=== PATIENT | male | born 1990 | race Caucasian/White ===

== ENCOUNTER 2023-01-23 17:39 | Emergency (ER) | payer OTHER, SELFPAY ==
[2023-01-23] VITALS (12 sets, daily range): BP systolic 131–162; BP diastolic 68–107; PULSE 56–94; RESP 15–22; TEMP 36.6–36.9; O2SAT 97–100
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
--- NOTE | 2023-01-23 17:54 | ECG_ITS ---
Measurements Intervals [place] Rate: 58 P: 53 MI: 126 QRS: 59 QRSD: 97 T: 44 QT: 408 QTc: 404 Interpretive Statements SINUS BRADYCARDIA BASELINE ARTIFACT- I, II, III, AVR, AVL, AVF, V4-V6 BORDERLINE ECG NO PREVIOUS ECG AVAILABLE FOR COMPARISON Electronically Signed On 01-23-2023 20:53:56 VEHICLE CHECK IN CLERK by Otilio Correa D.O.
[2023-01-23] MEDS: ONDANSETRON INJ 4 MG/2 ML VIAL IV PUSH (18:17)
[2023-01-23] MEDS: HYDROmorphone HCL INJ (*CRX) 1 MG/ML SYR IV PUSH (18:17)
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
[2023-01-23] MEDS: TETANUS,DIPHTHERIA,AC PERTUSSIS ADULT (0.5 ML) BOOSTRIX IM (18:34)
[2023-01-23 18:59] LABS: Basophils Absolute Auto 0.1 K/mm3 (0.0-0.1); Eosinophils Absolute Auto 0.2 K/mm3 (0-0.3); Eosinophils Percent Auto 3.5 % (0-4.4); Hematocrit 41.6 % (42.0-52.0); Immature Granulocyte Absolute 0.04 K/mm3 (0.00-0.031); Immature Granulocyte Percent A 0.6 % (0-0.5); Lymphocytes Absolute Auto 1.84 K/mm3 (0.9-3.2); Lymphocytes Percent Auto 29.5 % (18.3-44.2); Mean Corpuscular HGB Conc 33.7 g/dl (32-36); Mean Corpuscular Hemoglobin 33.3 pg (26-34); Mean Corpuscular Volume 98.8 fl (80-100); Mean Platelet Volume 8.9 fl (7.4-10.4); Monocytes Absolute Auto 0.9 K/mm3 (0.1-0.6); Monocytes Percent Auto 13.6 % (2.6-8.5); Neutrophils Absolute Auto 3.2 K/mm3 (1.3-6.7); Neutrophils Percent Auto 51.8 % (45.5-73.1); Platelet Count Result 235 k/mm3 (150-375); Red Blood Count 4.21 M/mm3 (4.6-6.20); Red Cell Distribution Width 13.2 % (11.5-14.5); White Blood Count 6.2 K/mm3 (4.5-10.0)
[2023-01-23 19:09] LABS: Alanine Aminotransferase 32 U/L (6-50); Albumin Level 4.5 g/dL (3.5-5.1); Alkaline Phosphatase 49 U/L (38-126); Anion Gap 6 mmol/L (8-16); Aspartate Amino Transferase 48 U/L (17-59); Bilirubin,Total 0.6 mg/dL (0.2-1.3); Blood Urea Nitrogen 11 mg/dL (9-20); Carbon Dioxide 28 mmol/L (22-30); Chloride 102 mmol/L (98-107); Estimated CRCL calculation 163 ml/min; Estimated Glomerular Filt Rate > 60; Glucose 120 mg/dL (65-110); Potassium 4.2 mmol/L (3.4-5.0); Sodium 136 mmol/L (137-145)
[2023-01-23 19:16] LABS: Prothrombin Time 12.7 Seconds (11.1-14.7)
[2023-01-23 19:17] LABS: Partial Thromboplastin Time 24.8 SECONDS (22.3-36.8)
[2023-01-23] MEDS: LACTATED RINGERS 1,000 ML 999 ML IV CONT (21:36)
[2023-01-23] MEDS: HYDROmorphone HCL INJ (*CRX) 1 MG/ML SYR 0.5 MG IV PUSH ×2 (21:53→23:43)
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
--- NOTE | 2023-01-24 02:51 | PC.NURSE ---
RIGO received from Dr. Rodriguez for Toradol, Dilaudid, and Tylenol
[2023-01-24 03:04] VITALS: BP 157/89; PULSE 72; RESP 16; O2SAT 95
[2023-01-24] MEDS: KETOROLAC 30 MG/ML VIAL (*BKC) 15 MG IV PUSH (03:05)
[2023-01-24] MEDS: HYDROmorphone HCL INJ (*CRX) 1 MG/ML SYR 0.5 MG IV PUSH (03:06)
== END 2023-01-24 03:33 | disposition short-term general hospital (02) ==
PROVIDERS: Emergency Provider General Practice
DX: S52.502A Unspecified fracture of the lower end of left radius, initial encounter for closed fracture (principal); S27.899A Unspecified injury of other specified intrathoracic organs, initial encounter; S22.20XA Unspecified fracture of sternum, initial encounter for closed fracture; R00.1 Bradycardia, unspecified; F17.210 Nicotine dependence, cigarettes, uncomplicated; V13.4XXA Pedal cycle driver injured in collision with car, pick-up truck or van in traffic accident, initial encounter; Z23 Encounter for immunization
CPT/HCPCS: 25605; 36415; 71045; 71260; 72125; 73100; 73110; 74177; 80053; 85025; 85610; 85730; 90471; 90715; 93005; 96361; 96374; 96375; 96376; 99285; A4565; J0131; J1170; J1885; J2405; J2704; J7120; Q9967

== ENCOUNTER 2025-03-16 01:10 | Observation (INO) | payer BC, SELFPAY ==
[2025-03-16] VITALS (17 sets, daily range): BP systolic 124–164; BP diastolic 68–107; PULSE 61–100; RESP 14–20; TEMP 36.1–37.3; O2SAT 93–100; BMI 34.5
--- NOTE | ~2025-03-16 | XR_ITS ---
EXAMINATION: XR ankle RT min 3V DATE: 03/16/2025 01:36 INDICATION: Right ankle deformity TECHNIQUE: Anteroposterior, oblique and lateral views of the right ankle were obtained. COMPARISON: None. FINDINGS: Trimalleolar fracture of the right ankle. There is 4 mm distraction of a transverse fracture extendin g across the medial malleolus. Oblique fracture of the distal fibula which exits the medial cortex 1. 5 cm proximal to the tibiotalar joint line and with one cortical width lateral displacement. Mildly c omminuted coronally oriented posterior malleolar fracture with mild posterior and proximal displaceme nt resulting in approximately 8 mm step-off along the articular surface of the tibial plafond. The po sterior malleolus fracture fragment comprises up to 40% of the articular surface or the tibial plafon d. No fractures in the visualized right foot. The talar dome is posterior subluxed in conjunction wit h the posterior malleolar fragment with marked widening of the anterior joint space. IMPRESSION: 1. Mildly displaced trimalleolar fracture of the right ankle with posterior tibiotalar subluxation as detailed above. Reviewed, dictated and finalized at location A. IMPRESSION: 1. Mildly displaced trimalleolar fracture of the right ankle with posterior tib iotalar subluxation as detailed above.
--- NOTE | ~2025-03-16 | XR_ITS ---
EXAMINATION: XR ankle RT 2V DATE: 03/16/2025 02:20 INDICATION: Postreduction of a right ankle fracture TECHNIQUE: Anteroposterior and lateral views of the right ankle were obtained. COMPARISON: 03/16/2025 and 1:18 AM FINDINGS: Again seen is a mildly displaced trimalleolar fracture of the right ankle. There is decrease in now 4 mm step-off along the articular surface of the tibial plafond with persistent mild posterior subluxa tion of the talar dome with respect to the anterior portion of the tibial plafond with persistent wid ening of the anterior tibiotalar joint space. No new fractures identified. IMPRESSION: 1. Trimalleolar fracture right ankle with slight improvement in alignment. Reviewed, dictated and finalized at location A.
--- NOTE | ~2025-03-16 | XR_ITS ---
EXAMINATION: XR surgery orthopedic DATE: 03/16/2025 13:03 INDICATION: Right ankle ORIF TECHNIQUE: 3 fluoroscopic images of the right ankle were obtained during procedure performed by Dr. Anne-Marie rea. Radiologist was not present for the imaging or procedure. The amount of fluoroscopy time used during this procedure was 1.1 minutes. Total DAP was 0.885 Gycm^2. COMPARISON: 03/16/2025 FINDINGS: Interval open reduction and internal fixation of the previously seen right ankle trimalleol ar fracture. The medial malleolus fracture is fixed with a single cannulated lag screw, the posterior malleolar fracture with a pair of lag screws in the fibular fracture with a retrograde intramedullar y terrell with distal interlocking screws. The alignment of the fixations appears near-anatomic. On the i nitial images there is some residual widening of the medial clear space which is subsequently reduced post tightrope type syndesmotic fixation extending across the metaphyseal region of the distal tibia and fibula with a congruent ankle mortise on the final image. No new fractures identified. IMPRESSION: 1. Near-anatomic alignment post internal fixation of a trimalleolar fracture of the right ankle inclu ding syndesmotic fixation. See procedure note for further detail. Reviewed, dictated and finalized at location B. IMPRESSION: 1. Near-anatomic alignment post internal fixation of a trimalleolar fracture of the right ankle including syndesmotic fixation. See procedure note for further detail.
--- NOTE | ~2025-03-16 | XR_ITS ---
EXAMINATION: XR chest 1V portable DATE: 03/16/2025 04:14 INDICATION: Preoperative evaluation. TECHNIQUE: frontal view of the chest was obtained. COMPARISON: Chest radiograph and CT dated 01/23/2023 FINDINGS: The lungs are clear with no focal airspace opacities, pulmonary edema, pleural effusion or pneumothor ax. The cardiomediastinal silhouette is normal. Old healed fracture of the left clavicle and a few le ft ribs. IMPRESSION: 1. No acute cardiopulmonary disease. Reviewed, dictated and finalized at location A.
[2025-03-16] MEDS: HYDROmorphone HCL INJ (*CRX) 2 MG/ML VIAL 1 MG IM (01:50)
[2025-03-16] MEDS: ACETAMINOPHEN 500 MG TABLET 1000 MG PO (01:50)
[2025-03-16] MEDS: KETOROLAC 30 MG/ML VIAL (*BKC) IM (01:50)
--- OUTSIDE RECORDS SUMMARY | 2025-03-16 03:07 | XMS_ITS | CONTINUITY OF CARE DOCUMENT ---
Author Name trey yang Address Unknown Organization [facility] Address [address] [place] [address] Phone [phone] Care Team Providers Care Tie Fastener Name Role Phone Miguel BUSTILLO, Daniel Unavailable JUNITO BUSTILLO, NAOMIE Unavailable INSURANCE PROVIDERS Payer name Policy type / Coverage type [place] red republican ID [facility] [id number] Other [id number]
--- OUTSIDE RECORDS SUMMARY | 2025-03-16 03:07 | XMS_ITS | Continuity of Care Document ---
Author Organization [facility] Address [address] [place] [address] Phone Care Team Providers Care Connie Scratcher Name Role Phone Colton Abernathy Unavailable Unavailable Advance Directives Directive Yes / No Effective Date File Name No Information Encounters Encounter Description Practice Location Reason(s) For Visit Diagnoses Date Provider Providers Copied on Encounter [facility], [address], [place], [place], [id number], [place] tel:[phone] SEC [facility] No Information 8-200 6 Josemanuel Segura. [address] , [address], [place], [address], [place]. tel:[phone] Family History Family Member Type Diagnosis Age At Onset No Information Payers Payer name Insurance type Covered green party ID Authoriza tion(s) No Information Social History Type Description Quantity Date Captured Comments Sex Male Smoking Status No Information Chief Complaint And Reason For Visit No Information Reason For Referral Reason For Referral No Information History Of Present Illness Encounter Date Complaint History Of Prese nt Illness No Information Functional Status Date Functional Assessmen t No Information Instructions Date Instruction Additional Infor mation No Information Assessments Type Assessment Date No Information Patient Care Teams Name Effective Dates (start - stop) Status Members No Information
--- OUTSIDE RECORDS SUMMARY | 2025-03-16 03:07 | XMS_ITS | Continuity of Care Document ---
Author Organization [facility] Address [address] [place] [address] [place] [phone] Phone Care Team Providers Care Visual Supervisor Name Role Phone Wilton Kuhn PT Unavailable Unavailable Procedures Procedure Date Therapeutic Activities Therapeutic Exercise Neuromuscular Re-Ed Therapeutic Activities Neuromuscular Re-Ed Therapeutic Exercise Hot or Cold Pack Progress Note Therapeutic Activities Neuromuscular Re-Ed Therapeutic Exercise Therapeutic Activities Neuromuscular Re-Ed Therapeutic Exercise Therapeutic Activities Neuromuscular Re-Ed Therapeutic Exercise Therapeutic Activities Neuromuscular Re-Ed Therapeutic Exercise Therapeutic Activities Neuromuscular Re-Ed Therapeutic Exercise Therapeutic Activities Neuromuscular Re-Ed Therapeutic Exercise Therapeutic Activities Neuromuscular Re-Ed Therapeutic Exercise Therapeutic Activities Neuromuscular Re-Ed Therapeutic Exercise Therapeutic Activities Neuromuscular Re-Ed Therapeutic Exercise Therapeutic Activities Neuromuscular Re-Ed Therapeutic Exercise PT Evaluation Moderate Complexity Therapeutic Activities Neuromuscular Re-Ed Therapeutic Exercise Advance Directives Directive Yes / No Effective Date File Name No Information Encounters Encounter Description Practice Location Reason(s) For Visit Diagnoses Date Provider Providers Copied on Encounter [facility] [address] [address], [place], [place], [id number], tel:[phone] Fabius No Information 3 Dellamano Wilton. . [facility] [address], [place], [place], [id number], [place] tel:[phone] Fabius No Information 3 Dellamano Wilton. . Referring Provider: Michael York [address] [place] [address], [address]. tel:[phone] [facility] [address] [address], [place], [place], [id number], tel:[phone] Fabius No Information 3 Nishi Mark. [address] [place] [address], [address], [place], [facility], [place]. tel:[phone] Referring Provider: Michael York [address] [place] [address], [place], [address]. tel:[phone] [address], [place], [place], [id number], tel:[phone] Fabius No Information 3 Dellamano Wilton. . Referring Provider: Michael York [address] [place] [address], [place], [address]. tel:[phone] [address] [address], [place], [place], [id number], tel:[phone] Fabius No Information 3 Dellam[address] Wil[address]. . Referring Provider: Concepción Sharma [address] [address], [place], [address]. tel:[phone] [place] [address], [address], [place], [place], [id number], [place] tel:[phone] Fabius No Information 3 Dellam[address] Wilton. . Referring Provider: Concepción Sharma [facility], [place], [address]. tel:[phone] [facility] [address], [place], [place], [id number], [place] tel:[phone] Fabius No Information Jun-0 3 Dellamano Wilton. . Referring Provider: Concepción Sharma [facility], [place], [address]. tel:[phone] [place] [address], [address], [place], [place], [id number], [place] tel:[phone] Fabius No Information 0 3 Dellamano Wilton. . Referring Provider: Concepción Sharma [facility] [address], [place], [address]. tel:[phone] [place] [address] [address], [place], [place], [address], [place] tel:[phone] Fabius No Information 0 3 Dellamano Wilton. . Referring Provider: Concepción Sharma [facility], [place], [address]. tel:[phone] [facility] [address], [place], [place], [address], [place] tel:[phone] Fabius No Information 0 3 Dellam[address]. . Referring Provider: Concepción Sharma [facility], [place], [address]. tel:[phone] [facility], [address], [place], [place], [address], [place] tel:[phone] Fabius No Information 3 Dellamano Wilton. . Referring Provider: Michael York, [address] [facility], [place], [address]. tel:[phone] [address] [address], [place], [place], [id number], tel:[phone] Fabius No Information 3 Dellam[address] Wil[address]. . Referring Provider: Michael York, [address] [facility], [place], [address]. tel:[phone], [place], [place], [id number], tel:[phone] Fabius No Information 3 Dellamano Wilton. . Referring Provider: Michael York, [address] [facility], [place], [address]. tel:[phone] [address] [address], [place], [place], [id number], tel:[phone] Fabius No Information 3 [place]. . Referring Provider: Michael York, [address] [address], [place], [address]. tel:[phone] Family History Family Member Type Diagnosis Age At Onset No Information Payers Payer name Insurance type Covered libertarian ID Lisaa candice(s) [employer] [place] [address] Social History Type Description Quantity Date Captured Comments Sex Male Smoking Status No Information Chief Complaint And Reason For Visit No Information Reason For Referral Reason For Referral No Information Plan Of Treatment Date Type Action Status Goal Tobacco cessation counseling completed Goal Tobacco Cessation Counseling completed History Of Present Illness Encounter Date Complaint History Of Prese nt Illness No Information Functional Status Date Functional Assessmen t No Information Instructions Date Instruction Additional Infor mation Prescribed activity/exercise edu cation Related to Overweight Dietary needs education Related to Overweight Assessments Type Assessment Date No Information Patient Care Teams Name Effective Dates (start - stop) Status Members No Information
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
--- OUTSIDE RECORDS SUMMARY | 2025-03-16 03:07 | XMS_ITS | Referral Summary ---
Author Organization [facility] Address [address] [place] [address] Care Team Providers Care Editorial Writer Name Role Phone No, Physician Primary Care Provider [phone] Allergies No known active allergies Medications acetaminophen [...] (10/11/2021): Added automatically from request for surgery [id number] Immunizations Immunization Administration Dates Next Due Influenza, [...] on file Legal Sex Male 5:58 PM MANAGER LOSS PREVENTION Gender Identity Not on file Sexual Orientation Not on file Last Filed Vital Signs Vital Sign Reading Time Taken Comments Blood Pressure 136/95 03/16/2023 9:06 AM CDT Pulse 74 03/16/2023 9:06 AM CDT Temperature 36 C (96.8 F) 03/16/2023 9:06 AM CDT Respiratory Rate 16 01/27/2023 8:31 AM MANAGER LOSS PREVENTION Oxygen Saturation 94% 03/16/2023 9:06 AM CDT Inhaled Oxygen Concentration - - Weight 89.4 kg (197 lb) 03/16/2023 9:06 AM CDT Height 180.3 cm (5' 11 ) 03/16/2023 9:06 AM CDT Body Mass Index 27.48 03/16/2023 9:06 AM CDT Plan of Treatment Not on file Insurance [facility] Advance Directives For more information, please contact: [phone] * Full Code (Latest Code Status on File) Date Activated Date Inactivated Comments 01/24/2023 8:23 PM 01/27/2023 10:54 PM * Full Code Date Activated Date Inactivated Comments 10/11/2021 4:46 PM 10/16/2021 12:45 AM Care Teams Editorial Writer Relationship Specialty Start Date End Date No, Physician PCP - General 10/10/21
--- NOTE | 2025-03-16 03:37 | ED.GENADULT ---
HPI - General Adult General Chief complaint: Extremity Injury, Lower Stated complaint: fall, ankle deformity Time Seen by Provider: 03/16/25 01:17 History of Present Illness HPI narrative: This is a 34-year-old male presenting after fall. Patient was walking down steps when he tripped stepped hard on to his right ankle. He then had significant pain and deformity of his ankle. EMS was called was brought to hospital for evaluation. No other injuries. Related Data Allergies Allergy/AdvReac Type Severity Reaction Status Date / Time No Known Allergies Allergy Verified 03/16/25 01:16 [facility] Past Medical History Medical History Patient denies medical problems Surgical History Surgical History No pertinent past surgical history Social History Social History Smoking packs per day: 1 Smoking cigarettes per day: 20.0 Smoking status: Current every day smoker Exam Narrative: APPEARANCE: No apparent distress. Head: atraumatic. EYES: EOMI, NOSE: Atraumatic NECK: Trachea midline RESPIRATORY: No increased rate of breathing CARDIOVASCULAR: RRR, ABDOMINAL: Non-distended MUSCULOSKELETAl: Focal exam of the right ankle reveals obvious deformity and bruising. Tenderness along both posterior malleoli. Pulses are +2 in the PT and DP distribution. NEURO: Alert. Moving 4/4 extremities SKIN:: Warm, dry. Normal color PSYCHIATRIC: Normal affect Course Vital Signs Vital signs: Vital Signs Temperature 99.2 F 03/16/25 01:12 Pulse Rate 86 03/16/25 01:12 Respiratory Rate 16 03/16/25 01:12 Blood Pressure 164/107 H 03/16/25 01:12 Pulse Oximetry 100 03/16/25 01:12 Oxygen Delivery Room Air 03/16/25 01:12 Temperature 99.2 F 03/16/25 01:12 Pulse Rate 86 03/16/25 01:12 Respiratory Rate 16 03/16/25 01:12 Blood Pressure 164/107 H 03/16/25 01:12 Pulse Oximetry 100 03/16/25 01:12 Oxygen Delivery Room Air 03/16/25 01:12 Procedures Orthopedic Fracture Reduction Fracture #1: Time Out Performed: Yes Side: right Fracture Reduction Location: other (ankle) Analgesia: none Pre-Procedure Neuro Vascular Exam: normal Technique: direct manipulation Post Reduction X-rays Demonstrate: acceptable reduction Post-reduction neuro exam: intact Post-reduction vascular exam: intact Splint Applied: Yes Patient Tolerated Procedure: well Medical Decision Making MDM Narrative Medical decision making narrative: -Course: 34-year-old male presenting with ankle fracture. Stat Rad read: A pilon fracture with mildly displaced fractures posterior tibial plafond medial malleolus and distal fibular metaphysis. There is anterior dislocation the tibia relative to the talus. Syndesmotic injury suspected, not this specific soft tissue swelling. Reduction was performed with mild improvement alignment. Splint applied. Case was discussed with Dr. Summers. Patient will be admitted the hospital for further management. -DDX includes but is not limited to: Ankle fracture, Dislocation Vital Signs Vital Signs: Vital Signs Temperature 99.2 F 03/16/25 01:12 Pulse Rate 86 03/16/25 01:12 Respiratory Rate 16 03/16/25 01:12 Blood Pressure 164/107 H 03/16/25 01:12 Pulse Oximetry 100 03/16/25 01:12 Oxygen Delivery Room Air 03/16/25 01:12 Temperature 99.2 F 03/16/25 01:12 Pulse Rate 86 03/16/25 01:12 Respiratory Rate 16 03/16/25 01:12 Blood Pressure 164/107 H 03/16/25 01:12 Pulse Oximetry 100 03/16/25 01:12 Oxygen Delivery Room Air 03/16/25 01:12 Discharge Plan Discharge Clinical Impression: Ankle fracture Patient Disposition: Still a Patient Condition: Stable Patient Language: Turkish Follow-up/Referrals: PHYSICIAN,MACHINE DEBURRER [Primary Care Provider] -
--- NOTE | 2025-03-16 03:59 | ECG_ITS ---
Test Date: 2025-03-16 04:30:37 Measurements Intervals [place] Rate: 77 P: 49 MN: 151 QRS: 27 QRSD: 93 T: 33 QT: 356 QTc: 404 Interpretive Statements SINUS RHYTHM BASELINE ARTIFACT- I, III, AVR, AVL NORMAL ECG No previous ECG available for comparison Electronically Signed On 03-16-2025 07:56:05 CDT by Otilio Correa D.O.
[2025-03-16] MEDS: HYDROmorphone HCL INJ (*CRX) 2 MG/ML VIAL 1 MG IV PUSH (04:26)
[2025-03-16 04:44] LABS: Basophils Absolute Auto 0.1 K/mm3 (0.0-0.1); Basophils Percent Auto 0.7 % (0.2-1.2); Eosinophils Percent Auto 0.4 % (0-4.4); Hematocrit 42.2 % (42.0-52.0); Hemoglobin 13.9 g/dL (14.0-18.0); Immature Granulocyte Absolute 0.02 K/mm3 (0.00-0.031); Immature Granulocyte Percent A 0.3 % (0-0.5); Lymphocytes Absolute Auto 2.04 K/mm3 (0.9-3.2); Lymphocytes Percent Auto 29.3 % (18.3-44.2); Mean Corpuscular HGB Conc 32.9 g/dl (32-36); Mean Corpuscular Hemoglobin 31.7 pg (26-34); Mean Corpuscular Volume 96.1 fl (80-100); Mean Platelet Volume 8.9 fl (7.4-10.4); Monocytes Absolute Auto 0.8 K/mm3 (0.1-0.6); Monocytes Percent Auto 10.9 % (2.6-8.5); Neutrophils Absolute Auto 4.1 K/mm3 (1.3-6.7); Neutrophils Percent Auto 58.4 % (45.5-73.1); Platelet Count Result 257 k/mm3 (150-375); Red Blood Count 4.39 M/mm3 (4.6-6.20); Red Cell Distribution Width 13.2 % (11.5-14.5)
[2025-03-16 04:53] LABS: Alanine Aminotransferase 26 U/L (6-50); Albumin Level 4.7 g/dL (3.5-5.1); Alkaline Phosphatase 59 U/L (38-126); Anion Gap 13 mmol/L (4-12); Aspartate Amino Transferase 30 U/L (17-59); Bilirubin,Total 0.3 mg/dL (0.2-1.3); Blood Urea Nitrogen 11 mg/dL (9-20); Calcium 8.9 mg/dL (8.4-10.2); Carbon Dioxide 21 mmol/L (22-30); Chloride 99 mmol/L (98-107); Estimated CRCL calculation 145 ml/min; Estimated Glomerular Filt Rate > 60; Glucose 99 mg/dL (65-110); Potassium 4.6 mmol/L (3.4-5.0); Sodium 133 mmol/L (137-145)
[2025-03-16 05:03] LABS: INR 0.9; Prothrombin Time 12.9 Seconds (11.1-14.7)
[2025-03-16 05:04] LABS: Partial Thromboplastin Time 29.2 Seconds (22.3-36.8)
[2025-03-16] MEDS: LACTATED RINGERS 1,000 ML 75 ML IV CONT (05:19)
--- NOTE | 2025-03-16 05:22 | ADMGEN ---
This patient, Dyllan Leija, was admitted to [address] [place] [address] Room [facility] at 0508. Patient/family oriented to hospital policies and general routines including ID bracelet, bed and alarms, visiting hours, pain management, procedures, bathroom and other care routines, personal items, smoking policy, room service/diet, and visiting hours. Information on how to activate the Rapid Response Team has been discussed. Patient/Family are encouraged to report perceived risks to care and to ask questions if they do not understand what they are told or what they should do.
[2025-03-16] MEDS: HYDROmorphone HCL INJ (*CRX) 2 MG/ML VIAL 0.5 MG IV PUSH (06:26)
[2025-03-16] MEDS: KETOROLAC 30 MG/ML VIAL (*BKC) IV PUSH (08:37)
--- NOTE | 2025-03-16 09:11 | PM.IMHP ---
H&P: HPI History of Present Illness Date/Time: 03/16/25 09:11 Chief Complaint: right ankle fracture Narrative: 34-year-old visiting family last night when he missed a step and fell injuring his right ankle. Brought to the emergency room by EMS. Unable to bear weight on the right leg. Found to have fracture dislocation of the right ankle. This was reduced by the emergency room and patient admitted. He complains of severe pain right ankle. Denies numbness or tingling. Denies other injury at the time of his fall. Describes prior problems with his left ankle but none with the right. He is an independent ambulator without assistive devices. Review of Systems Constitutional: Constitutional: Denies fever(s) Eyes: Eyes: Denies blurry vision ENT: Reports Normal hearing present Cardiovascular: Cardiovascular: Denies chest pain and Denies dyspnea Respiratory: Respiratory: Denies dyspnea and Denies wheezing Gastrointestinal: Gastrointestinal: Denies abdominal pain Genitourinary: Genitourinary: Denies urinary urgency Musculoskeletal: Musculoskeletal: Reports as per HPI and Denies numbness Integumentary/Breasts: Skin/Breast: Denies changing lesions and Denies sores Neurologic: Reports Normal hearing present, Denies behavioral changes, Denies confusion, Denies numbness and Denies convulsions Psychiatric: Psychiatric: Denies behavioral changes, Denies confusion and Denies hallucinations Endocrine: Endocrine: Denies heat intolerance Hematologic/Lymphatic: Hematologic/Lymphatic: Denies easy bleeding Allergic/Immunologic: Allergic/Immunologic: Denies wheezing PMFSH Past Medical History Medical History (Updated 03/16/25 @ 09:16 by Candido Summers MD) Closed pilon fracture of right tibia Patient denies medical problems Surgical History Surgical History No pertinent past surgical history Family History Family History Other No significant family history Social History Social History Smoking packs per day: 1 Smoking cigarettes per day: 20.0 Smoking status: Current every day smoker Tobacco type: e-cigarettes/vaping Alcohol intake: current Drinks per week: 6 Substance use: current Substance use type: marijuana Last use: 03/15/25 Do You Feel Safe in your Home?: Yes Lack of Transportation: No Lack of Food: Never True Current Housing: I Have Housing Concerned About Future Housing: No Difficulty Paying Gas/Electric Bills: No Difficulty Paying for Meds: No Currently Unemployed: No Education: Associate Degree Difficulty w/ Childcare or Family Care: No Spiritual care concerns: No Meds Home Medications and Allergies Home Medications ?Medication ?Instructions ?Recorded ?Confirmed ?Type multivitamin (Daily Multi-Vitamin 1 tablet PO DAILY 03/16/25 03/16/25 History tablet) Allergies Allergy/AdvReac Type Severity Reaction Status Date / Time No Known Allergies Allergy Verified 03/16/25 01:16 Vital Signs Vital Signs - 24 hr 03/16/25 01:12 03/16/25 04:00 03/16/25 05:32 Temperature 99.2 F 97.0 F L Pulse Rate 86 97 86 Respiratory Rate 16 16 20 Blood Pressure 164/107 H 142/86 H 153/91 H Pulse Oximetry 100 97 96 Oxygen Delivery Room Air 03/16/25 05:57 Temperature Pulse Rate Respiratory Rate Blood Pressure Pulse Oximetry Oxygen Delivery Room Air Exam Const: General: No confusion Orientation/consciousness: patient oriented x3 and No confusion HENMT: Head: normal to inspection, normocephalic and atraumatic Eyes: Conjunctivae: conjunctivae normal Sclera: sclerae normal Neck: Neck: supple and nontender Chest: Chest palpation & inspection: normal inspection of the chest Resp: Effort & Inspection: normal respiratory effort and no audible wheezes Cardio: Rate: regular rate Rhythm: regular rhythm : General: Yes deferred Skin: General skin exam: no rashes or lesions noted Neuro: General: patient oriented x3 and No confusion Extrem: General: capillary refill normal Right upper extremity: normal to inspection Left upper extremity: normal to inspection Right lower extremity: hip/thigh Details: no tenderness, knee Details: abnormal ROM ( Knee range of motion deferred secondary to fracture); no tenderness and no swelling, ankle Details: tenderness Location: of the lateral malleolus and anteromedially, swelling ( moderate) Details: laterally and medially, abnormal ROM Details: pain with active ROM and ecchymosis ( moderate diffusely ankle) and foot Details: vascular exam Details: dorsalis pedis pulse present and normal capillary refill, tendon exam (intact, able to flex and extend toes) and motor-sensory exam Details: light-touch normal Location: in all toes Left lower extremity: normal to inspection, hip/thigh Details: normal to inspection, knee Details: normal to inspection, ankle Details: normal to inspection and normal ROM ( Active flexion and extension intact); no tenderness and no swelling and foot Details: vascular exam Details: dorsalis pedis pulse present and normal capillary refill, tendon exam active flexion normal and active flexion abnormal and motor-sensory exam light-touch normal; no tenderness Other: Splint in place right lower leg. Toes exposed. Good capillary refill in the toes, good sensation to touch. Able to move the toes. Psych: Affect: normal affect H&P: Results Labs Labs: Short CBC 03/16/25 Range/Units 04:36 WBC 7.0 (4.5-10.0) K/mm3 Hgb 13.9 L (14.0-18.0) g/dL Hct 42.2 (42.0-52.0) % Plt Count 257 (150-375) k/mm3 BMP 03/16/25 04:36 Sodium 133 L Potassium 4.6 Chloride 99 Carbon Dioxide 21 L BUN 11 Creatinine 0.78 Glucose 99 Calcium 8.9 Liver Function 03/16/25 Range/Units 04:36 Total Bilirubin 0.3 (0.2-1.3) mg/dL AST 30 (17-59) U/L ALT 26 (6-50) U/L Alkaline Phosphatase 59 (38-126) U/L Albumin 4.7 (3.5-5.1) g/dL ECG Pacemaker function: other Imaging Ankle x-ray: Attestation: I personally reviewed and interpreted this imaging study as follows: ( injury radiographs show tibial Pilon fracture with posterior displacement and associated distal fibula fracture. Post reduction radiographs show some improvement in alignment of the ankle mortise.) Assessment and Plan Assessment and plan (1) Closed pilon fracture of right tibia: Qualifiers: Encounter type: initial encounter Fracture alignment: displaced Qualified Code(s): S82.871A - Displaced pilon fracture of right tibia, initial encounter for closed fracture Code(s): S82.871A - Displaced pilon fracture of right tibia, initial encounter for closed fracture Status: Acute Assessment and Plan: New patient evaluation for chief complaint right ankle fracture. History, physical exam and radiographs reviewed with the patient. Fall on stairs last night. Right ankle fracture dislocation with intra-articular involvement. Discussed the condition, nature, etiology and course of natural history with the patient. Treatment options including surgical and nonoperative treatment were reviewed. Risks and benefits of each as well as alternatives reviewed. The patient's questions were answered. Conservative treatment ice, compression and elevation. Patient desires operative treatment. Intra-articular involvement with combination discussed with patient. Risk for posttraumatic arthritis and ankle dysfunction discussed in detail. Plan Discussed nonoperative and operative treatment options with the patient. Risks and benefits of each as well as alternatives were reviewed. All of the patient's questions were answered. The risks of surgery reviewed including but not limited to: Neurovascular damage, wound complication, infection, blood clot, pulmonary embolus, stroke, myocardial infarction, and anesthetic risks up to and including . Continued pain and possible dysfunction were explained. Specific risks of the procedure including later recurrence of deformity. No guarantees were offered. If hardware used, discussed risk of failure/ breakage and possible need for removal. If complications occur, the patient understands the need for further treatment, possible further surgery. Patient verbalizes understanding and wishes to proceed. PLAN: Open reduction internal fixation right ankle fracture.
--- NOTE | 2025-03-16 09:20 | WPDHPUPDATE1 ---
History and Physical Update Update Date/Time: 03/16/25 09:20 History and Physical has been reviewed, including an updated exam of the patient. There are NO changes in the patient's condition. Risks, benefits, and alternatives have been discussed and questions answered. Patient agrees to proceed with procedure.
--- OUTSIDE RECORDS SUMMARY | 2025-03-16 09:56 | XMS_ITS | Continuity of Care Document ---
Author Organization [facility] Address [address] [place] [address] Phone Care Team Providers Care Investment Banking Associate Name Role Phone Colton Abernathy Unavailable Unavailable Advance Directives Directive Yes / No Effective Date File Name No Information Encounters Encounter Description Practice Location Reason(s) For Visit Diagnoses Date Provider Providers Copied on Encounter [facility], [address], [place], [place], [id number], [place] tel:[phone] SEC [facility] No Information 8-200 6 Josemanuel Segura. [address] , [address], [place], [address], [place]. tel:[phone] Family History Family Member Type Diagnosis Age At Onset No Information Payers Payer name Insurance type Covered alliance party ID Authoriza tion(s) No Information Social [...]
--- OUTSIDE RECORDS SUMMARY | 2025-03-16 09:56 | XMS_ITS | Continuity of Care Document ---
Author Organization [facility] Address [address] [place] [address] Phone Care Team Providers Care Carbide Tool Die Maker Name Role Phone Colton Abernathy Unavailable Unavailable Advance Directives Directive Yes / No Effective Date File Name No Information Encounters Encounter Description Practice Location Reason(s) For Visit Diagnoses Date Provider Providers Copied on Encounter [facility], [address], [place], [place], [id number], [place] tel:[phone] SEC [facility] No Information 8-200 6 Josemanuel Segura. [address] [facility] , [address], [place], [address], [place]. tel:[phone] Family History Family Member Type Diagnosis Age At Onset No Information Payers Payer name Insurance type Covered libertarian ID Authoriza tion(s) No Information Social History [...]
--- OUTSIDE RECORDS SUMMARY | 2025-03-16 09:56 | XMS_ITS | Continuity of Care Document ---
Author Organization [facility] Address [address] [place] [address] [place] [address] Phone Care Team Providers Care Accounts Payable Specialist Name Role Phone Wilton Kuhn PT Unavailable Unavailable Procedures Procedure Date Therapeutic Activities Therapeutic Exercise Neuromuscular Re-Ed Therapeutic Activities Neuromuscular Re-Ed Therapeutic Exercise Hot or Cold Pack Progress Note Therapeutic Activities Neuromuscular Re-Ed Therapeutic Exercise Therapeutic Activities Therapeutic Exercise Neuromuscular Re-Ed Therapeutic Activities Neuromuscular Re-Ed Therapeutic Exercise Therapeutic [...] Diagnoses Date Provider Providers Copied on Encounter [facility] [address] [address], [place], [place], [id number], tel:[phone] [facility] No Information 3 Dell[address]. . [facility] [address], [place], [place], [id number], [place] tel:[phone] [facility] No Information 3 [address]. . Referring Provider: Michael York [address] [place] [address], [address]. tel:[phone] [facility] [address] [address], [place], [place], [address], tel:[phone] [facility] No Information 3 Nishi Mark. [address] [place] [address], [address], [place], [facility], [place]. tel:[phone] Referring Provider: Michael York [address] [place] [address], [place], [address]. tel:[phone] [address], [place], [place], [id number], tel:[phone] [facility] No Information 3 [address]. . Referring Provider: Michael York [address] [place] [address], [place], [address]. tel:[phone] [address] [address], [place], [place], [address], tel:[phone] [facility] No Information [address]. . Referring Provider: Concepción Sharma [address] [address], [place], [address]. tel:[phone] [place] [address], [address], [place], [place], [address], [place] tel:[phone] [facility] No Information 3 [address]. . Referring Provider: Concepción Sharma [facility], [place], [address]. tel:[phone] [facility] [address], [place], [place], [id number], [place] tel:[phone] [facility] No Information Jun-0 3 [address]. . Referring Provider: Concepción Sharma [facility], [place], [address]. tel:[phone] [place] [address], [address], [place], [place], [address], [place] tel:[phone] [facility] No Information 0 3 [address]. . Referring Provider: Concepción Sharma [facility] [address], [place], [address]. tel:[phone] [place] [address] [address], [place], [place], [address], [place] tel:[phone] [facility] No Information 0 [address]. . Referring Provider: Concepción Sharma [facility], [place], [address]. tel:[phone] [facility] [address], [place], [place], [address], [place] tel:[phone] [facility] No Information 0 3 [address]. . Referring Provider: Concepción Sharma [facility], [place], [address]. tel:[phone] [facility], [address], [place], [place], [address], [place] tel:[phone] [facility] No Information 3 Dell[address]. . Referring Provider: Michael York, [address] [facility], [place], [address]. tel:[phone] [address] [address], [place], [place], [address], tel:[phone] [facility] No Information 3 [address]. . Referring Provider: Michael York, [address] [facility], [place], [address]. tel:[phone], [place], [place], [address], tel:[phone] [facility] No Information 3 [address]. . Referring Provider: Michael York, [address] [facility], [place], [address]. tel:[phone] [address] [address], [place], [place], [id number], tel:[phone] [facility] No Information [address] [place] . Referring Provider: Michael York, [address] [address], [place], [address]. tel:[phone] Family History Family Member Type Diagnosis Age At Onset No Information Payers Payer name Insurance type Covered alliance party ID Lisaa candice(s) [employer] [place] [id number] Social History Type Description Quantity [...]
--- OUTSIDE RECORDS SUMMARY | 2025-03-16 09:56 | XMS_ITS | CONTINUITY OF CARE DOCUMENT ---
Author Name trey yang Address Unknown Organization [facility] Address [address] [place] [address] Phone [phone] Care Team Providers Care Inserting Press Operator Name Role Phone Miguel BUSTILLO, Daniel Unavailable JUNITO BUSTILLO, NAOMIE Unavailable INSURANCE PROVIDERS Payer name Policy type / Coverage type [place] red alliance party ID [facility] [id number] Other [id number]
--- OUTSIDE RECORDS SUMMARY | 2025-03-16 09:56 | XMS_ITS | CONTINUITY OF CARE DOCUMENT ---
Author Name trey yang Address Unknown Organization [facility] Address [address] [place] [address] Phone [phone] Care Team Providers Care Warehouser Name Role Phone Miguel BUSTILLO, Daniel Unavailable [phone] JUNITO BUSTILLO, NAOMIE Unavailable [phone] INSURANCE PROVIDERS Payer name Policy type / Coverage type [place] red libertarian ID [facility] [id number] Other [id number]
--- OUTSIDE RECORDS SUMMARY | 2025-03-16 09:56 | XMS_ITS | Continuity of Care Document ---
Author Organization [facility] Address [address] [place] [address] [place] [id number] Phone Care Team Providers Care X Ray Equipment Tester Name Role Phone Wilton Kuhn PT Unavailable [...] Diagnoses Date Provider Providers Copied on Encounter [facility] [address] [address], [place], [place], [id number], tel:[phone] [place] No Information 3 Dellamano Wilton. . [facility] [address], [place], [place], [id number], [place] tel:[phone] [place] No Information 3 Dellamano Wil[place]. . Referring Provider: Michael York [address] [place] [address], [address]. tel:[phone] [facility] [address] [address], [place], [place], [id number], tel:[phone] [place] No Information 3 Nishi Mark. [address] [place] [address], [address], [place], [facility] [place], [place]. tel:[phone] Referring Provider: Michael York [address] [place] [address], [place], [address]. tel:[phone] [address] [address], [place], [place], [id number], tel:[phone] [place] No Information 3 Dellamano Wilton. . Referring Provider: Michael York [address] [place] [address], [place], [address]. tel:[phone] [address] [address], [place], [place], [id number], tel:[phone] [place] No Information 3 Dellamano Wilton. . Referring Provider: Concepción Sharma [address] [address], [place], [address]. tel:[phone] [place] [address], [address], [place], [place], [id number], [place] tel:[phone] [place] No Information 3 Dellamano Wilton. . Referring Provider: Concepción Sharma [facility], [place], [address]. tel:[phone] [facility] [address], [place], [place], [id number], [place] tel:[phone] [place] No Information Jun-0 3 Dellamano Wilton. . Referring Provider: Concepción Sharma [facility], [place], [address]. tel:[phone] [place] [address], [address], [place], [place], [id number], [place] tel:[phone] [place] No Information 0 3 Dellamano Wilton. . Referring Provider: Concepción Sharma [facility] [address], [place], [address]. tel:[phone] [place] [address] [address], [place], [place], [id number], [place] tel:[phone] [place] No Information 0 3 Dellamano Wilton. . Referring Provider: Concepción Sharma [facility], [place], [address]. tel:[phone] [facility] [address], [place], [place], [id number], [place] tel:[phone] [place] No Information 0 3 Dellamano [place]. . Referring Provider: Concepción Sharma [facility], [place], [address]. tel:[phone] [facility], [address], [place], [place], [id number], [place] tel:[phone] [place] No Information 3 Dellamano Wilton. . Referring Provider: Michael York, [address] [facility], [place], [address]. tel:[phone] [address] [address], [place], [place], [id number], tel:[phone] [place] No Information 3 Dellamano Wilton. . Referring Provider: Michael York, [address] [facility], [place], [address]. tel:[phone], [place], [place], [id number], tel:[phone] [place] No Information 3 Dellamano Wilton. . Referring Provider: Michael York, [address] [facility], [place], [address]. tel:[phone] [address] [address], [place], [place], [id number], tel:[phone] [place] No Information 3 [place]. . Referring Provider: Michael York, [address] [address], [place], [address]. tel:[phone] Family History Family Member Type Diagnosis Age At Onset No Information Payers Payer name Insurance type Covered constitution party ID Lisaa candice(s) [employer] [place] 00 Social History Type Description Quantity [...]
--- OUTSIDE RECORDS SUMMARY | 2025-03-16 09:56 | XMS_ITS | Referral Summary ---
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 Gender Identity Not on file Sexual Orientation Not on file Last Filed Vital Signs Vital Sign Reading Time Taken Comments Blood Pressure 136/95 03/16/2023 9:06 AM CDT Pulse 74 03/16/2023 9:06 AM CDT Temperature 36 C (96.8 F) 03/16/2023 9:06 AM CDT Respiratory Rate 16 01/27/2023 8:31 AM CUSTOMER SERVICE OPERATOR Oxygen Saturation 94% 03/16/2023 9:06 AM CDT Inhaled Oxygen Concentration - - Weight 89.4 kg (197 lb) 03/16/2023 9:06 AM CDT Height 180.3 cm (5' 11 ) 03/16/2023 9:06 AM CDT Body Mass Index 27.48 03/16/2023 9:06 AM CDT Plan of Treatment Not on file Insurance [facility] Advance Directives For more information, please contact: [phone] * Full Code (Latest Code Status on File) Date Activated Date Inactivated Comments 01/24/2023 8:23 PM 01/27/2023 10:54 PM * Full Code Date Activated Date Inactivated Comments 10/11/2021 4:46 PM 10/16/2021 12:45 AM Care Teams Sales Development Consultant Relationship Specialty Start Date End Date No, Physician PCP - General 10/10/21
--- OUTSIDE RECORDS SUMMARY | 2025-03-16 09:56 | XMS_ITS | Clinical Summary ---
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 Gender Identity Not on file Sexual Orientation Not on file Obstetrics History Last Filed Vital Signs Vital Sign Reading Time Taken Comments Blood Pressure 136/95 03/16/2023 9:06 AM CDT Pulse 74 03/16/2023 9:06 AM CDT Temperature 36 C (96.8 F) 03/16/2023 9:06 AM CDT Respiratory Rate 16 01/27/2023 8:31 AM MASS SPECTROMETRY SPECIALIST Oxygen Saturation 94% 03/16/2023 9:06 AM CDT [...] patient's age to complete this topic Insurance [facility] LAUREN MCKNIGHT [id number] [facility] [address] LAUREN MCKNIGHT [facility] Advance Directives For more information, please contact: [phone] * Full Code (Latest Code Status on File) Date Activated Date Inactivated Comments 01/24/2023 8:23 PM 01/27/2023 10:54 PM * Full Code Date Activated Date Inactivated Comments 10/11/2021 4:46 PM 10/16/2021 12:45 AM Care Teams Land Acquisition Analyst Relationship Specialty Start Date End Date No, Physician PCP - General 10/10/21
--- NOTE | 2025-03-16 10:28 | WPDANESEPPF ---
Anes - Initial Pre Proc Eval Procedure: Operation Date: 03/16/25 10:30 Proposed Procedures p ORIF Ankle Fracture(Right) - Candido Summers MD Date/Time: 03/16/25 10:28 Surgeon: Candido Summers MD Pre Op Diagnosis: Ankle fracture Patient Data Age: 34 Gender: M Height: 1.8 m Weight: 112.4 kg Last Vital Signs Temp 36.1 C L 03/16/25 05:32 Pulse 86 03/16/25 05:32 Resp 20 03/16/25 05:32 BP 153/91 H 03/16/25 05:32 Pulse Ox 96 03/16/25 05:32 O2 Del Method Room Air 03/16/25 05:57 Allergies Allergy/AdvReac Type Severity Reaction Status Date / Time No Known Allergies Allergy Verified 03/16/25 01:16 Home Medications ?Medication ?Instructions ?Recorded ?Confirmed ?Type multivitamin (Daily Multi-Vitamin 1 tablet PO DAILY 03/16/25 03/16/25 History tablet) Laboratory Tests 03/16/25 04:36 WBC 7.0 K/mm3 (4.5-10.0) RBC 4.39 L M/mm3 (4.6-6.20) Hgb 13.9 L g/dL (14.0-18.0) Hct 42.2 % (42.0-52.0) MCV 96.1 fl (80-100) MCH 31.7 pg (26-34) MCHC 32.9 g/dl (32-36) RDW 13.2 % (11.5-14.5) Plt Count 257 k/mm3 (150-375) MPV 8.9 fl (7.4-10.4) Immature Gran % (Auto) 0.3 % (0-0.5) Neut % (Auto) 58.4 % (45.5-73.1) Lymph % (Auto) 29.3 % (18.3-44.2) [place] % (Auto) 10.9 H % (2.6-8.5) Eos % (Auto) 0.4 % (0-4.4) Baso % (Auto) 0.7 % (0.2-1.2) Lymph # (Auto) 2.04 K/mm3 (0.9-3.2) [place] # (Auto) 0.8 H K/mm3 (0.1-0.6) Eos # (Auto) 0.0 K/mm3 (0-0.3) Baso # (Auto) 0.1 K/mm3 (0.0-0.1) Abs Immat Gran (auto) 0.02 K/mm3 (0.00-0.031) Absolute Neuts (auto) 4.1 K/mm3 (1.3-6.7) Absolute Nucleated RBC 0.000 K/mm3 (0.0-0.012) Nucleated RBC % 0.0 % (0.0-0.2) PT 12.9 Seconds (11.1-14.7) INR 0.9 APTT 29.2 Seconds (22.3-36.8) Sodium 133 L mmol/L (137-145) Potassium 4.6 mmol/L (3.4-5.0) Chloride 99 mmol/L (98-107) Carbon Dioxide 21 L mmol/L (22-30) Anion Gap 13 H mmol/L (4-12) BUN 11 mg/dL (9-20) Creatinine 0.78 mg/dL (0.7-1.3) Estim Creat Clear Calc 145 ml/min Estimated GFR > 60 (59 - ) Glucose 99 mg/dL (65-110) Calcium 8.9 mg/dL (8.4-10.2) Total Bilirubin 0.3 mg/dL (0.2-1.3) AST 30 U/L (17-59) ALT 26 U/L (6-50) Alkaline Phosphatase 59 U/L (38-126) Total Protein 7.0 g/dL (6.3-8.2) Albumin 4.7 g/dL (3.5-5.1) Patient hx anesthesia problems: none Family hx anesthesia problems: none Results Review: All pre-operative results and documents have been reviewed as part of the pre-operative evaluation. [facility] Past Medical History Medical History (Updated 03/16/25 @ 10:28 by Kavon Hewitt MD) Smoker Obesity Closed pilon fracture of right tibia Surgical History Surgical History No pertinent past surgical history Family History Family History Other No significant family history Social History Social History Smoking packs per day: 1 Smoking cigarettes per day: 20.0 Smoking status: Current every day smoker Tobacco type: e-cigarettes/vaping Alcohol intake: current Drinks per week: 6 Substance use: current Substance use type: marijuana Last use: 03/15/25 Do You Feel Safe in your Home?: Yes Lack of Transportation: No Lack of Food: Never True Current Housing: I Have Housing Concerned About Future Housing: No Difficulty Paying Gas/Electric Bills: No Difficulty Paying for Meds: No Currently Unemployed: No Education: Associate Degree Difficulty w/ Childcare or Family Care: No Spiritual care concerns: No Anes - Eval Final PreProcedure Day of Procedure 03/16/25 10:28 Patient weight: obese Heart: regular rate and rhythm Lungs: clear to auscultation Airway: Mallampati scale class II Neurological: alert and oriented Last oral intake: >/= 8 hours ASA classification: II Emergent: no Anesthetic plan: proceed Anesthesia type and monitoring: general LMA and standard monitoring Results Review: All pre-operative results and documents have been reviewed as part of the pre-operative evaluation. Informed Consent: The patient's anesthetic plan and its attendant risks and benefits were discussed with the patient/family/POA. Questions were solicited and answers provided to the satisfaction of the patient/family/POA.
[2025-03-16] MEDS: LACTATED RINGERS 1,000 ML 30 ML IV CONT ×2 (11:00→13:16)
[2025-03-16] MEDS: ceFAZolin SODIUM 1 GM VIAL 2 GM IV PUSH (11:40)
[2025-03-16] MEDS: KETOROLAC 15 MG/ML VIAL (*BKC) IV PUSH (11:44)
[2025-03-16] MEDS: BUPIVACAINE/EPINEPHRINE 0.5% 30 ML VIAL INFILTRATE (11:45)
--- NOTE | 2025-03-16 13:29 | P.OP_ITS ---
Procedure Note - Detailed Date of Procedure 03/16/25 Pre-op Diagnosis Right Ankle fracture intra-articular with dislocation Post-op Diagnosis Same Procedure Performed Open reduction internal fixation of weight-bearing portion of the tibia with intramedullary fixation of the fibula. 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 Presents for operative treatment. Description of Procedure After informed consent, the operative extremity was marked in the preoperative holding area. Patient received intravenous antibiotics. Patient was then taken to the operating room and underwent general anesthesia by the anesthesia team. They were positioned supine on the operating room table. A time-out was performed confirming the patient, site of the surgery, operative plan. Right Lower extremity then prepped and draped in the usual sterile surgical fashion using ChloraPrep skin solution. Foot and ankle exsanguinated and a thigh tourniquet inflated to 250 mmHg. Longitudinal incision made over the lateral ankle distal fibula with a 15 blade knife. Hemostasis controlled with electrocautery. Full-thickness soft tissue flaps developed and the fascia was incised in line with the skin incision. Fracture identified and cleared with a dental pick, irrigation and rongeur. Noted to be extensive soft tissue stripping from the fibula as well as the anterior and posterior portions of the visualized ankle joint. The distal fracture fragment was retracted posteriorly in the lateral portion of the ankle joint could be visualized. Debris was c leared from this and thorough irrigation done and suctioned. [place] elevator was able to be placed into the posterior malleolus fracture and the posterior plafond of the tibia which allowed the fracture to be mobilized. Articular surface of the tibia was then reduced including the Posterior malleolus piece reduced into position and held with a bone-holding clamp. Fixation achieved with 4.0 mm partially-threaded cannulated screws. Two of these used with good fixation noted. Screws were placed from anterior to posterior through stab incision at the anterior aspect using fluoroscopy for guidance. Anterior incisions made with 15 blade knife and blunt dissection of the soft tissue down to the anterior tibia. Soft tissue protectors were placed. The wounds were then thoroughly irrigated and closed with 4 O nylon interrupted suture. The lateral malleolus was then addressed. Fracture reduced and held with bone- holding clamp. Image intensification confirmed reduction of the fracture and the ankle mortise. Fixation achieved with intramedullary fibular nail. Guide terrell placed in the intramedullary canal and verified with image intensification. Reaming performed and the nail was then inserted to and depth verified. Proximal deployment device released. Verified with image intensification. Distal locking with 2.7 mm screw unicortical x2 from lateral to medial. Good alignment and stability of the fracture noted. Image intensification used to confirm reduction of the fracture and placement of the hardware. Stress of the ankle performed with good stability of the ankle mortise in all directions. Instability of the syndesmosis noted. Tight rope then placed in the syndesmosis portion of the nail from lateral to medial and verified with image intensification. Wound thoroughly irrigated with antibiotic solution. Tourniquet released and bleeding points coagulated. Fascia repaired with 00 Vicryl interrupted suture. Subcutaneous tissue repaired with 000 Monocryl interrupted suture and Steri-Strips. Longitudinal incision made over the medial ankle medial malleolus with a 15 blade knife. Hemostasis controlled with electrocautery. Fracture reduced and held with K-wire. Image intensification confirmed reduction of the fracture and the ankle mortise. Fixation achieved with a 4.0 mm partially threaded cannulated screw. Good alignment and stability of the fracture noted. Image intensification used to confirm reduction of the fracture and placement of the hardware. Wound thoroughly irrigated with antibiotic solution. Subcutaneous tissue repaired with 000 Monocryl interrupted suture. Skin was addressed with Steri-Strips. Local anesthetic with 0.5% Marcaine plain. Sterile dressings applied. Padded splint then applied. Good capillary refill noted in the toes. Palpable dorsalis pedis pulse prior to placement of the dressing. Patient awoken from anesthesia, extubated and taken to the recovery room in stable condition. All sponge, needle and instrument counts correct at the end of the case. Palpable dorsalis pedis pulse noted prior to dressing. Implants Arthrex fibular nail, 3.8 mm with distal locking screw x2. Arthrex syndesmosis tight rope. 4.0 mm partially-threaded screws x3. Estimated Blood Loss 25 Tourniquet Time Total Tourniquet Time: 80 Urine Output 1,000 Drains No Packing No Pathology None sent Complications None Condition Stable Disposition PACU [facility] Billing Surgery - Charge Forward: Surgery Billing ([id number])
[2025-03-16] MEDS: fentaNYL CITRATE INJ (*CRX) 100 MCG/2 ML VIAL 25 MCG IV PUSH ×4 (13:44→14:30)
[2025-03-16] MEDS: HYDROcodone/acetaminophen (*CRX) 7.5-325 MG TABLET 1 TAB PO ×2 (17:11→20:22)
[2025-03-16] MEDS: SENNA/DOCUSATE SODIUM TABLET 2 TAB PO (17:11)
[2025-03-16] MEDS: FAMOTIDINE 20 MG TABLET PO (20:22)
[2025-03-16] MEDS: ASPIRIN 325 MG ENTERIC TABLET PO (20:22)
[2025-03-16] MEDS: ceFAZolin 1 GM/NS 50 ML 1 GM/50 ML BAG IVPB (20:31)
[2025-03-17] MEDS: HYDROcodone/acetaminophen (*CRX) 7.5-325 MG TABLET 1 TAB PO ×6 (00:21→22:13)
[2025-03-17 00:26] VITALS: BP 113/67; PULSE 73; RESP 16; TEMP 36.9; O2SAT 100
[2025-03-17] MEDS: ceFAZolin 1 GM/NS 50 ML 1 GM/50 ML BAG IVPB ×2 (03:18→11:06)
[2025-03-17] MEDS: MORPHINE SULFATE (*CRX) 4 MG/ML INJ 3 MG IV PUSH (03:24)
[2025-03-17 04:07] VITALS: BP 155/89; PULSE 67; RESP 18; TEMP 36.4; O2SAT 100
[2025-03-17] MEDS: IBUPROFEN IV 800 MG/200 ML 800 MG/200 ML BAG 400 MG IVPB (04:09)
[2025-03-17] MEDS: MULTIVITAMINS THERAPEUTIC TAB (*BKC) 1 TABLET PO (08:00)
[2025-03-17] MEDS: FAMOTIDINE 20 MG TABLET PO ×2 (08:00→20:44)
[2025-03-17] MEDS: SENNA/DOCUSATE SODIUM TABLET 2 TAB PO ×2 (08:00→17:03)
[2025-03-17] MEDS: ASPIRIN 325 MG ENTERIC TABLET PO ×2 (08:01→20:44)
[2025-03-17] MEDS: polyethylene glycoL 3350 17 GM POWD.PACK PO (08:02)
--- NOTE | 2025-03-17 08:57 | PM.PNORT ---
Progress Note: A&P Assessment and Plan (1) Closed pilon fracture of right tibia: Qualifiers: Encounter type: initial encounter Fracture alignment: displaced Qualified Code(s): S82.871A - Displaced pilon fracture of right tibia, initial encounter for closed fracture Code(s): S82.871A - Displaced pilon fracture of right tibia, initial encounter for closed fracture Status: Acute Assessment and Plan: POD #1: Open reduction internal fixation of weight-bearing portion of the tibia with intramedullary fixation of the fibula. PT/OT, NWB RLE. Crutches. Pain control. Ice/Elevate. Splint with drainage at the hindfoot. Plan to remove/apply cast today before d/c. Aspirin 325mg PO BID for DVT prophylaxis. Dispo: Home pending cast change, pain control. (2) Ankle fracture: Qualifiers: Encounter type: initial encounter Fracture type: closed Laterality: right Qualified Code(s): S82.891A - Other fracture of right lower leg, initial encounter for closed fracture Code(s): S82.899A - Other fracture of unspecified lower leg, initial encounter for closed fracture Status: Acute Plan Reviewed history, exam, radiographs and current labs with attending MD and covering surgeon, Dr. Summers, who agrees with current plan as indicated above. No further recommendations from Dr. Summers at this time. Subjective Subjective Date/Time Seen: 03/17/25 08:57 Post Op day: 1 Interval history: POD #1: Open reduction internal fixation of weight-bearing portion of the tibia with intramedullary fixation of the fibula. Patient doing well. Pain well controlled. Tolerating PO intake. Concerns about bleeding through splint. Review of Systems Review of Systems: All systems reviewed & are unremarkable except as noted in HPI and below Exam Const: General: comfortable and no acute distress Resp: Effort & Inspection: normal respiratory effort Cardio: Rate: regular rate Rhythm: regular rhythm GI: GI Palp: Yes Soft to palpation Neuro: Speech: normal speech Sensory Exam: normal sensation Extrem: General: capillary refill normal Right lower extremity: knee Details: normal to inspection; no tenderness and no swelling, lower leg (splint in place ), ankle (splint in place. bleeding at the hindfoot through splint. ) Details: tenderness (diffuse ) and foot (moves toes, sensation intact. ) Details: normal capillary refill and toes with normal ROM; no tenderness Objective Data Vital Signs Vital Signs: Vital Signs - 24 hr 03/16/25 13:16 03/16/25 13:30 03/16/25 13:40 Temperature 36.5 C Pulse Rate 80 100 78 Respiratory Rate 14 18 20 Blood Pressure 124/86 139/90 133/79 Pulse Oximetry 100 100 100 Oxygen Delivery Simple Face Mask Simple Face Mask Simple Face Mask Oxygen Flow Rate 8 8 8 03/16/25 13:50 03/16/25 14:00 03/16/25 14:10 Temperature 36.1 C L Pulse Rate 84 88 79 Respiratory Rate 18 18 16 Blood Pressure 138/69 132/90 151/85 H Pulse Oximetry 95 97 96 Oxygen Delivery Room Air Room Air Room Air Oxygen Flow Rate 03/16/25 14:20 03/16/25 14:30 03/16/25 14:40 Temperature Pulse Rate 71 86 80 Respiratory Rate 16 16 14 Blood Pressure 142/75 H 136/90 133/80 Pulse Oximetry 94 94 95 Oxygen Delivery Room Air Room Air Room Air Oxygen Flow Rate 03/16/25 14:59 03/16/25 15:28 03/16/25 18:18 Temperature 36.5 C 36.6 C 36.9 C Pulse Rate 80 66 77 Respiratory Rate 18 16 18 Blood Pressure 149/83 H 143/88 H 132/68 Pulse Oximetry 93 94 97 Oxygen Delivery Oxygen Flow Rate 03/16/25 20:26 03/17/25 00:26 03/17/25 04:07 Temperature 36.9 C 36.9 C 36.4 C Pulse Rate 61 73 67 Respiratory Rate 18 16 18 Blood Pressure 139/88 113/67 155/89 H Pulse Oximetry 98 100 100 Oxygen Delivery Oxygen Flow Rate 03/17/25 08:05 03/17/25 08:08 Temperature Pulse Rate Respiratory Rate Blood Pressure Pulse Oximetry Oxygen Delivery Room Air Room Air Oxygen Flow Rate Intake/Output Intake/Output: Intake & Output 03/14/25 03/15/25 03/16/25 03/17/25 23:59 23:59 23:59 23:59 Intake Total 790 750 Output Total 2000 300 Balance -1210 450 Meds/Results Medications: Active Medications Generic Name Dose Route Start Last Admin Trade Name Freq PRN Reason Stop Dose Admin Acetaminophen 650 mg 03/16/25 14:41 Acetaminophen 325 Mg Tablet PO Q6H PRN Pain rated 1-3 or Fever Hydrocodone Bitart/Acetaminophen 1 tab 03/16/25 14:41 03/17/25 08:01 Hydrocodone/Acetaminophen (*Crx) 7.5-325 Mg Tablet PO 1 tab Q3H PRN Administration Pain Rated 4-6 Aspirin 325 mg 03/16/25 21:00 03/17/25 08:01 Aspirin 325 Mg Enteric Tablet PO 325 mg Q12HR LELIA Administration Diazepam 5 mg 03/16/25 14:41 Diazepam (*Crx) 5 Mg Tablet PO Q8H PRN Muscle Spasm Famotidine 20 mg 03/16/25 21:00 03/17/25 08:00 Famotidine 20 Mg Tablet PO 20 mg Q12HR LELIA Administration Ibuprofen 800 mg in 200 mls @ 400 mls/hr 03/16/25 14:41 03/17/25 04:39 Caldolor 800 Mg/200 Ml IVPB Infused Q6H PRN Infusion Pain Rated 4-6 Cefazolin Sodium 1 gm in 50 mls @ 100 mls/hr 03/16/25 20:00 03/17/25 03:48 Ancef 1 Gm/Ns 50 Ml IVPB 03/17/25 12:29 Infused Q8H LELIA Infusion Ketorolac Tromethamine 30 mg 03/16/25 04:00 03/16/25 08:37 Ketorolac 30 Mg/Ml Vial (*Bkc) IV PUSH 03/21/25 03:59 30 mg Q6H PRN Administration Pain Rated 4-6 Morphine Sulfate 3 mg 03/16/25 14:41 03/17/25 03:24 Morphine Sulfate (*Crx) 4 Mg/Ml Inj IV PUSH 3 mg Q3H PRN Administration Pain Rated 7-10 Multivitamins Therapeutic 1 tablet 03/17/25 09:00 03/17/25 08:00 Multivitamins Therapeutic Tab (*Bkc) PO 1 tablet DAILY LELIA Administration Naloxone HCl 0.1 mg 03/16/25 14:41 Naloxone Hcl 0.4 Mg/Ml Vial IV PUSH Q2M PRN Opiate Reversal Nicotine 1 patch 03/17/25 09:00 03/17/25 08:02 Nicotine (*Pbkc) 7 Mg Patch TRANSDERM Not Given DAILY LELIA Ondansetron HCl 4 mg 03/16/25 14:41 Ondansetron Inj 4 Mg/2 Ml Vial IV PUSH Q4H PRN Nausea And Vomiting Polyethylene Glycol 17 gm 03/17/25 09:00 03/17/25 08:02 Polyethylene Glycol 3350 17 Gm Powd.Pack PO 17 gm QAM LELIA Administration Senna/Docusate Sodium 2 tab 03/16/25 17:00 03/17/25 08:00 Senna/Docusate Sodium Tablet PO 2 tab BID LELIA Administration Radiology Results: ITS Impressions Ankle X-Ray 03/16/25 07:44 IMPRESSION: 1. Trimalleolar fracture right ankle with slight improvement in alignment. Chest X-Ray 03/16/25 08:30 IMPRESSION: 1. No acute cardiopulmonary disease. Intraoperative X-Ray 03/17/25 08:31 IMPRESSION: 1. Near-anatomic alignment post internal fixation of a trimalleolar fracture of the right ankle including syndesmotic fixation. See procedure note for further detail.
[2025-03-17 09:04] VITALS: BP 148/85; PULSE 97; RESP 18; TEMP 36.9; O2SAT 95
--- NOTE | 2025-03-17 13:39 | PM.OP ---
Procedure Note - Brief Procedure Note - Brief Date of procedure: 03/17/25 <JORGE LUIS Brooks - Last Filed: 03/17/25 13:41> 03/18/25 <Candido Summers MD - Last Filed: 03/18/25 08:18> Ankle fracture <JORGE LUIS Brooks - Last Filed: 03/17/25 13:41> Post-op diagnosis: Same <JORGE LUIS Brooks - Last Filed: 03/17/25 13:41> Procedure performed: Right <JORGE LUIS Brooks - Last Filed: 03/17/25 13:41> Surgeon: Candido Summers MD <JORGE LUIS Brooks - Last Filed: 03/17/25 13:41> Child Nutrition Director: Rosemary Verdugo NP <JORGE LUIS Brooks - Last Filed: 03/17/25 13:41> Anesthesia: none <JORGE LUIS Brooks - Last Filed: 03/17/25 13:41> Findings: Treatment options reviewed with the patient. Splint removed due to postoperative bleeding. Incisions clean dry and intact. Ankle treated with alcohol and peroxide prep solution. Sterile dressing applied. New short-leg cast applied. <Candido Summers MD - Last Filed: 03/18/25 08:18> Description of procedure: see below. Casting. <JORGE LUIS Brooks - Last Filed: 03/17/25 13:41> Estimated blood loss (mL): 0 <JORGE LUIS Brooks - Last Filed: 03/17/25 13:41> Total Tourniquet Time: 0 <JORGE LUIS Brooks - Last Filed: 03/17/25 13:41> IV fluids (mL): 0 <JORGE LUIS Brooks - Last Filed: 03/17/25 13:41> Urine output (mL): 400 <JORGE LUIS Brooks - Last Filed: 03/17/25 13:41> Drains: No <JORGE LUIS Brooks - Last Filed: 03/17/25 13:41> Packing: No <JORGE LUIS Brooks - Last Filed: 03/17/25 13:41> Pathology: None sent <JORGE ULIS Brooks - Last Filed: 03/17/25 13:41> Complications: No immediate complications <JORGE LUIS Brooks - Last Filed: 03/17/25 13:41> Condition: Stable <SCAR BrooksP - Last Filed: 03/17/25 13:41> Disposition: No change <SCAR BrooksP - Last Filed: 03/17/25 13:41> Fracture/Casting/Strapping Pre Procedure Consent was obtained, Procedures/risks were explained, Questions were answered, Correct patient identified and Correct side and site confirmed <JORGE LUIS Brooks - Last Filed: 03/17/25 13:41> Episode of Care New episode (Right Ankle ) <JORGE LUIS Brooks - Last Filed: 03/17/25 13:41> Casting Cast: Short Leg Cast <JORGE LUIS Brooks - Last Filed: 03/17/25 13:41> Supplies and DME Casting Supplies: Cast supls;shrt leg cast,adult,fibr <JORGE LUIS Brooks - Last Filed: 03/17/25 13:41> Material: Fiberglass <JORGE LUIS Brooks - Last Filed: 03/17/25 13:41> Application Exam of Affected Area: Color: Abnormal (ecchymosis ), Temp: Normal, Pulse: Normal, Blanching: Normal, Capillary Refill: Normal and Sensory Exam: Normal <JORGE LUIS Brooks - Last Filed: 03/17/25 13:41> Swelling: Yes and Tenderness: Yes <JORGE LUIS Brooks - Last Filed: 03/17/25 13:41> Skin: Apperance: Intact <JORGE LUIS Brooks - Last Filed: 03/17/25 13:41> Care: Alcohol Wipes and Saline <JORGE LUIS Brooks - Last Filed: 03/17/25 13:41> Patient Tolerated Procedure Well: Yes <JORGE LUIS Brooks - Last Filed: 03/17/25 13:41> Post Procedure Patient tolerated the procedure well?: Tolerated procedure well <JORGE LUIS Brooks - Last Filed: 03/17/25 13:41>
[2025-03-17 14:30] VITALS: BP 156/81; PULSE 70; RESP 18; TEMP 36.1; O2SAT 99
[2025-03-17] MEDS: KETOROLAC 30 MG/ML VIAL (*BKC) IV PUSH (17:03)
[2025-03-17 20:43] VITALS: BP 138/90; PULSE 70; RESP 18; TEMP 36.5; O2SAT 95
[2025-03-18] MEDS: HYDROcodone/acetaminophen (*CRX) 7.5-325 MG TABLET 1 TAB PO ×4 (01:07→14:13)
[2025-03-18] MEDS: IBUPROFEN IV 800 MG/200 ML 800 MG/200 ML BAG 400 MG IVPB (03:05)
[2025-03-18 04:08] VITALS: BP 154/86; PULSE 60; RESP 16; TEMP 36.3; O2SAT 98
[2025-03-18] MEDS: polyethylene glycoL 3350 17 GM POWD.PACK PO (08:51)
[2025-03-18] MEDS: MULTIVITAMINS THERAPEUTIC TAB (*BKC) 1 TABLET PO (08:52)
[2025-03-18] MEDS: SENNA/DOCUSATE SODIUM TABLET 2 TAB PO (08:52)
[2025-03-18] MEDS: ASPIRIN 325 MG ENTERIC TABLET PO (08:52)
[2025-03-18] MEDS: FAMOTIDINE 20 MG TABLET PO (08:52)
--- NOTE | 2025-03-18 09:11 | P.PNOP_ITS ---
Progress Note: A&P Assessment and Plan (1) Closed pilon fracture of right tibia: Qualifiers: Encounter type: initial encounter Fracture alignment: displaced Qualified Code(s): S82.871A - Displaced pilon fracture of right tibia, initial encounter for closed fracture Code(s): S82.871A - Displaced pilon fracture of right tibia, initial encounter for closed fracture Status: Acute Assessment and Plan: POD #2: Open reduction internal fixation of weight-bearing portion of the tibia with intramedullary fixation of the fibula. PT/OT, NWB RLE. Crutches. Pain control. Ice/Elevate. Cast intact. Aspirin 325mg PO BID for DVT prophylaxis. Dispo: Home (2) Ankle fracture: Qualifiers: Encounter type: initial encounter Fracture type: closed Laterality: right Qualified Code(s): S82.891A - Other fracture of right lower leg, initial encounter for closed fracture Code(s): S82.899A - Other fracture of unspecified lower leg, initial encounter for closed fracture Status: Acute Plan Reviewed history, exam, radiographs and current labs with attending MD and covering surgeon, Dr. Summers, who agrees with current plan as indicated above. No further recommendations from Dr. Summres at this time. Subjective Subjective Date/Time Seen: 03/18/25 09:11 Post Op day: 2 Interval history: POD #2: Open reduction internal fixation of weight-bearing portion of the tibia with intramedullary fixation of the fibula. Patient doing well. Pain well controlled. Tolerating PO intake. No concerns with new cast. Review of Systems Review of Systems: All systems reviewed & are unremarkable except as noted in HPI and below Exam Const: General: comfortable and no acute distress Resp: Effort & Inspection: normal respiratory effort Cardio: Rate: regular rate Rhythm: regular rhythm GI: GI Palp: Yes Soft to palpation Neuro: Speech: normal speech Sensory Exam: normal sensation Extrem: General: capillary refill normal Right lower extremity: knee Details: normal to inspection; no tenderness and no swelling, lower leg (cast in place ), ankle (cast in place. no drainage. ) Details: tenderness (diffuse ) and foot (moves toes, sensation intact. ) Details: normal capillary refill and toes with normal ROM; no tenderness Objective Data Vital Signs Vital Signs: Vital Signs - 24 hr 03/17/25 09:26 03/17/25 14:30 03/17/25 20:43 Temperature 36.1 C L 36.5 C Pulse Rate 70 70 Respiratory Rate 18 18 Blood Pressure 156/81 H 138/90 Pulse Oximetry 99 95 Oxygen Delivery Room Air 03/18/25 04:08 Temperature 36.3 C L Pulse Rate 60 Respiratory Rate 16 Blood Pressure 154/86 H Pulse Oximetry 98 Oxygen Delivery Intake/Output Intake/Output: Intake & Output 03/15/25 03/16/25 03/17/25 03/18/25 23:59 23:59 23:59 23:59 Intake Total 790 2570 500 Output Total 1999 2900 1100 Balance -1210 -330 -600 Meds/Results Medications: Active Medications Generic Name Dose Route Start Last Admin Trade Name Freq PRN Reason Stop Dose Admin Acetaminophen 650 mg 03/16/25 14:41 Acetaminophen 325 Mg Tablet PO Q6H PRN Pain rated 1-3 or Fever Hydrocodone Bitart/Acetaminophen 1 tab 03/16/25 14:41 03/18/25 06:25 Hydrocodone/Acetaminophen (*Crx) 7.5-325 Mg Tablet PO 1 tab Q3H PRN Administration Pain Rated 4-6 Aspirin 325 mg 03/16/25 21:00 03/18/25 08:52 Aspirin 325 Mg Enteric Tablet PO 325 mg Q12HR LELIA Administration Diazepam 5 mg 03/16/25 14:41 Diazepam (*Crx) 5 Mg Tablet PO Q8H PRN Muscle Spasm Famotidine 20 mg 03/16/25 21:00 03/18/25 08:52 Famotidine 20 Mg Tablet PO 20 mg Q12HR LELIA Administration Ibuprofen 800 mg in 200 mls @ 400 mls/hr 03/16/25 14:41 03/18/25 03:35 Caldolor 800 Mg/200 Ml IVPB Infused Q6H PRN Infusion Pain Rated 4-6 Ketorolac Tromethamine 30 mg 03/16/25 04:00 03/17/25 17:03 Ketorolac 30 Mg/Ml Vial (*Bkc) IV PUSH 03/21/25 03:59 30 mg Q6H PRN Administration Pain Rated 4-6 Morphine Sulfate 3 mg 03/16/25 14:41 03/17/25 03:24 Morphine Sulfate (*Crx) 4 Mg/Ml Inj IV PUSH 3 mg Q3H PRN Administration Pain Rated 7-10 Multivitamins Therapeutic 1 tablet 03/17/25 09:00 03/18/25 08:52 Multivitamins Therapeutic Tab (*Bkc) PO 1 tablet DAILY LELIA Administration Naloxone HCl 0.1 mg 03/16/25 14:41 Naloxone Hcl 0.4 Mg/Ml Vial IV PUSH Q2M PRN Opiate Reversal Nicotine 1 patch 03/17/25 09:00 03/18/25 08:53 Nicotine (*Pbkc) 7 Mg Patch TRANSDERM Not Given DAILY [facility] Ondansetron HCl 4 mg 03/16/25 14:41 Ondansetron Inj 4 Mg/2 Ml Vial IV PUSH Q4H PRN Nausea And Vomiting Polyethylene Glycol 17 gm 03/17/25 09:00 03/18/25 08:51 Polyethylene Glycol 3350 17 Gm Powd.Pack PO 17 gm QAM LELIA Administration Senna/Docusate Sodium 2 tab 03/16/25 17:00 03/18/25 08:52 Senna/Docusate Sodium Tablet PO 2 tab BID LELIA Administration Radiology Results: ITS Impressions Ankle X-Ray 03/16/25 07:44 IMPRESSION: 1. Trimalleolar fracture right ankle with slight improvement in alignment. Chest X-Ray 03/16/25 08:30 IMPRESSION: 1. No acute cardiopulmonary disease. Intraoperative X-Ray 03/17/25 08:31 IMPRESSION: 1. Near-anatomic alignment post internal fixation of a trimalleolar fracture of the right ankle including syndesmotic fixation. See procedure note for further detail.
--- NOTE | 2025-03-21 08:22 | P.DS_ITS ---
DS: Admitting Diagnosis Discharge Date 03/18/25 Admitting Diagnosis Right Ankle Fracture DS: Discharge Diagnosis Discharge Diagnosis (1) Closed pilon fracture of right tibia: Qualifiers: Encounter type: initial encounter Fracture alignment: displaced Qualified Code(s): S82.871A - Displaced pilon fracture of right tibia, initial encounter for closed fracture Code(s): S82.871A - Displaced pilon fracture of right tibia, initial encounter for closed fracture Status: Acute Assessment and Plan: POD #2: Open reduction internal fixation of weight-bearing portion of the tibia with intramedullary fixation of the fibula. PT/OT, NWB RLE. Crutches. Pain control. Ice/Elevate. Cast intact. Aspirin 325mg PO BID for DVT prophylaxis. Dispo: Home (2) Ankle fracture: Qualifiers: Encounter type: initial encounter Fracture type: closed Laterality: right Qualified Code(s): S82.891A - Other fracture of right lower leg, initial encounter for closed fracture Code(s): S82.899A - Other fracture of unspecified lower leg, initial encounter for closed fracture Status: Acute Plan Reviewed history, exam, radiographs and current labs with attending MD and covering surgeon, Dr. Summers, who agrees with current plan as indicated above. No further recommendations from Dr. Summers at this time. DS: Summary Hospital Course Reason for hospitalization: Right Ankle Fracture Hospital Course: 34 year old male admitted s/p Right Ankle Fracture and ORIF by Dr. Summers for postoperative medical management, pain control and mobilization with PT/OT. Patient progressed slowly with PT/OT. Pain control difficult on POD #1. Improvment on POD #2. Cast applied. Vitals remained stable throughout. The patient has been cleared to be discharged home at this time. All discharge care instructions reviewed at depth. New medications reviewed. Follow up planned in the outpatient orthopedic clinic with Dr. Summers. Dr. Summers in agreement with safe discharge at this time. Status at Discharge Functional status at discharge: uses cane/walker (crutches ) Overall status at discharge: patient is back to baseline Time Spent with Patient Time attestation: Total time spent providing and/or coordinating discharge services: Exam Const: General: comfortable and no acute distress; No confusion Orientation/consciousness: patient oriented x3 and No confusion HENMT: Head: normal to inspection, normocephalic and atraumatic Eyes: Conjunctivae: conjunctivae normal Sclera: sclerae normal Neck: Neck: supple and nontender Chest: Chest palpation & inspection: normal inspection of the chest Resp: Effort & Inspection: normal respiratory effort and no audible wheezes Cardio: Rate: regular rate Rhythm: regular rhythm : General: Yes deferred Skin: General skin exam: no rashes or lesions noted Neuro: General: patient oriented x3 and No confusion Cranial nerves: Yes Normal hearing present Speech: normal speech Sensory Exam: normal sensation Extrem: General: capillary refill normal Right upper extremity: normal to inspection Left upper extremity: normal to inspection Right lower extremity: hip/thigh Details: no tenderness, knee Details: normal to inspection; no tenderness and no swelling, lower leg (cast in place ), ankle (cast in place. no drainage. ) Details: tenderness (diffuse ) Location: of the lateral malleolus and anteromedially and foot (moves toes, sensation intact. ) Details: normal capillary refill and toes with normal ROM; no tenderness Left lower ex tremity: normal to inspection, hip/thigh Details: normal to inspection, knee Details: normal to inspection, ankle Details: normal to inspection and normal ROM ( Active flexion and extension intact); no tenderness and no swelling and foot Details: vascular exam Details: dorsalis pedis pulse present and normal capillary refill, tendon exam active flexion normal and active flexion abnormal and motor-sensory exam light-touch normal; no tenderness Other: Splint in place right lower leg. Toes exposed. Good capillary refill in the toes, good sensation to touch. Able to move the toes. Psych: Affect: normal affect Discharge Plan Discharge Attending physician on discharge: Candido Summers Consulting providers: Earle Núñez; Rosemary Verdugo; Otilio Correa; Kavon Hewitt; Elliott Ellington Discharging Clinician: Rosemary Verdugo Patient Disposition: Home Activity: may shower, no driving and follow weight bearing status Diet: as tolerated Wound Care Instructions: follow printed instructions Discharge Instructions: Dr. Candido Summers Orthopedic Surgery [phone] * Keep cast clean/dry and intact. * Elevate the leg above the level of the heart. * Ice over cast. * Pain control. DO NOT Drive while under the influence of narcotics. * Aspirin for DVT prophylaxis x28 days. * Follow up appt indicated below. * Contact our office with questions/concerns in the interim. Patient Instructions: Antibiotic Form Patient Language: Mongolian Stand Alone Forms: General Discharge Information Follow-up/Referrals: Candido Summers MD [Physician] - 03/25/25 1:00 pm Discharge Medications: New aspirin 325 mg Tablet,Delayed Release (Dr/Ec) 325 mg PO Q12HR 28 Days Qty: 56 0RF sennosides-docusate sodium [Senokot-S] 8.6-50 mg Tablet 2 tablet PO BID 14 Days Qty: 56 0RF hydrocodone-acetaminophen 7.5-325 mg Tablet 1 tablet PO Q4-6H PRN (Reason: pain) Qty: 30 0RF Continued multivitamin [Daily Multi-Vitamin] Tablet 1 tablet PO DAILY Date of admission: 03/16/25 07:11 Primary Care Provider: PHYSICIAN,CRM SPECIALIST Admitting Provider: Candido Summers Attending physician on admission: Candido Summers Condition: Stable
== END 2025-03-18 16:23 | disposition home or self-care (01) ==
LOC: ANHED 04:12 → ANH3MED 09:53
PROVIDERS: Admitting Provider Orthopaedic Surgery; Emergency Provider Emergency Medicine; Visit Provider Orthopaedic Surgery
PROC: (CPT 27823; principal; 2025-03-16 10:30)
DX: S82.871A Displaced pilon fracture of right tibia, initial encounter for closed fracture (principal); S82.891A Other fracture of right lower leg, initial encounter for closed fracture; W10.9XXA Fall (on) (from) unspecified stairs and steps, initial encounter; L76.22 Postprocedural hemorrhage of skin and subcutaneous tissue following other procedure; F17.290 Nicotine dependence, other tobacco product, uncomplicated; E66.9 Obesity, unspecified; Z68.34 Body mass index [BMI] 34.0-34.9, adult
CPT/HCPCS: 27823; 27829; 29405; 27818; 36415; 71045; 73600; 73610; 80053; 85025; 85610; 85730; 93005; 96372; 96374; 97116; 97161; 97165; 97530; 99199; 99285; A9270; C1713; C1769; J0690; J1171; J1741; J1885; J2003; J2250; J2270; J2405; J3010; J7120